=== PATIENT | male | born 1950 | race Caucasian/White ===

== ENCOUNTER 2017-07-25 05:22 | Day surgery (SDC) | payer OTHER ==
[~2017-07-25] VITALS: Ht 175.3 cm; Wt 79.8 kg
--- NOTE | ~2017-07-25 | O ---
[facility] [address] [place] [address] OPERATIVE REPORT Name: ANITHA ROMO Room #: DEP [facility]..#: [id number] Admission: 07/25/17 Attend Phys: Trev Slaughter MD Discharge: 07/25/17 Date of : 54 Report #: [id number] THIS REPORT FOR: //name// CC: Obdulia Slaughter DATE OF SERVICE: 07/25/[address] Trev Slaughter and Dr. Obdulia Gibbs and Dr. Kyle Dick. PREOPERATIVE DIAGNOSIS: Right inguinal hernia. POSTOPERATIVE DIAGNOSIS: Right inguinal hernia with a right cord lipoma. PROCEDURE: Right inguinal hernia repair with Prolene hernia system mesh and excision of a right cord lipoma. SURGEON: Trev Slaughter MD ANESTHESIA: Local IV sedation. DESCRIPTION OF PROCEDURE: The patient was brought to the operating room and placed on operative table in the supine position. Sequential compression devices were in place for DVT prophylaxis. There was no indication for preoperative antibiotics. The patient underwent IV sedation. The right inguinal area was prepped and draped in a sterile fashion. Skin and subcutaneous tissue were then infiltrated with 0.5% Marcaine and 1% Xylocaine in a 1:1 mixture. Right inguinal skin incision was then performed using #10 scalpel blade. Hemostasis obtained using electrocautery as well as clamps and 2-0 chromic ties. Dissection was carried down through the subcutaneous tissue, the external oblique fascia, which was then incised with a knife and opened with the Metzenbaum scissors. The cord was then dissected free from the canal and held into place with a Hailee drain. Cremasteric muscle fibers were then split in the direction of their fibers using clamp and electrocautery. A large cord lipoma was identified, dissected free, clamped, excised and tied with a 2-0 chromic tie. An indirect inguinal hernia sac was then also identified, dissected free and reduced back through the internal ring. The floor was inspected and there was also a direct inguinal hernia defect. This hernia sac was then incised just above the level of the floor and reduced back through the floor. An extended Prolene hernia system mesh was then inserted through the floor and the underlay patch was then deployed into the preperitoneal space covering the direct and indirect inguinal hernias. The floor was then tightened around the connector using running 2-0 Prolene 2 layer shouldice repair. The overlay patch was then deployed in the inguinal canal and it was secured at the pubic tubercle with the same running 2-0 Prolene suture. Mesh was then secured superiorly at the connector using simple interrupted 2-0 Vicryl sutures. The [address] [address] OPERATIVE REPORT Name: ANITHA ROMO Room #: DEP [facility] M.R.#: [id number] Admission: 07/25/17 Attend Phys: Trev Slaughter MD Discharge: 07/25/17 Date of : 54 Report #: [id number] mesh was split and wrapped around the cord, secured to the inguinal ligament with simple interrupted 2-0 Vicryl suture. The cord was then returned to the canal intact. The external oblique fascia was then closed using running 2-0 Vicryl suture. Adam's fascia was then reapproximated using 3 simple interrupted 2-0 chromic sutures and the skin then closed with a running 4-0 subcuticular Vicryl stitch. Wound was then dressed with Mastisol, 1/2-inch Steri-Strips cut in half, Telfa, 4 x 4 gauze, sponge and tape. The patient was then taken to the recovery room awake, alert and in good condition. Estimated blood loss was approximately 5 mL and the patient tolerated procedure well. All sponge, lap and instrument counts were correct x 2. <ELECTRONICALLY SIGNED> By: Trev Slaughter MD 07/25/17 1615 [id number] Trev Slaughter MD /nt
--- NOTE | ~2017-07-25 | S ---
[facility] [place] [address] SURGICAL PATH RPT PROCEDURE Name: HAI ROMO Room #: [place] [facility] M..#: [id number] Admission: 07/25/17 Date of : 54 Discharge: 07/25/17 Report #: [id number] Path Case #: [id number] PATHOLOGY REPORT COLLECTION DATE: 07/25/2017 RECEIVED DATE: 07/25/2017 SUBMITTING PHYS: Dr. Trev Slaughter OTHER PHYS: Dr. Obdulia Negron SPECIMEN(S) RECEIVED: A.Right cord lipoma * * * * * * * * * * * * FINAL DIAGNOSIS: "Right cord lipoma," excision: - Mature adipose tissue consistent with lipoma. (CLW:mgkenneth; 07/26/2017) PATHOLOGIST: Dianelys Lopez M.D. REPORT ELECTRONICALLY SIGNED BY: Dianelys Lopez M.D. DATE/TIME: 07/26/2017 22:20 * * * * * * * * * * * * GROSS PATHOLOGY: Received in formalin labeled "Hai Romo, right cord lipoma" and consists of a thinly encapsulated, glistening, and yellow orange fragment of adipose tissue measuring 8.0 x 4.0 x 2.5 cm. The specimen is inked black. The cut surfaces are glistening and yellow orange. [facility] Nurse Practitioner sections are submitted as A1. (VINAY; 07/25/2017) CLINICAL HISTORY: Hernia repair, inguinal unilateral INITIAL CPT CODE(S): A; 59974 Professional services performed by [facility] at [facility] [address] [place] [address] Technical services performed by [facility] at [address] [place] [id number]. [facility] [address] [place] [address] SURGICAL PATH RPT PROCEDURE Name: HAI ROMO Room #: DEP [facility] Kassandra#: [id number] Admission: 07/25/17 Date of : 54 Discharge: 07/25/17 Report #: [id number] Path Case #: [id number] [address] PHONE: [phone] DIRECTOR: Rodrigo Whitley M.D. * * * END OF REPORT * * *
[~2017-07-25 05:22] MED LIST: ACETAMINOPHEN-1 EAC1 PO; ASPIR 8181 M1 PO; FERREX 28 TABL1 EACH PO; GARLIC200 MG PO; GOLDEN SEAL RO535 MG PO; IBUPROFEN 200200 M1 PO; LIPOFLAVONOID1 EACH PO; VITAMIN D1000 UNI1 PO; VITAMIN E400 UNIT PO
[2017-07-25 08:21] VITALS: BP 117/83
[2017-07-25] MEDS ORDERED: PERCOCET PO (09:37)
[2017-07-25 11:36] VITALS: BP 117/83
== END 2017-07-25 12:10 | disposition home or self-care (01) ==
LOC: OR 05:22 → TBA 05:23 → OR 07:55
DX: K40.90 Unilateral inguinal hernia, without obstruction or gangrene, not specified as recurrent (principal); D17.6 Benign lipomatous neoplasm of spermatic cord; K21.9 Gastro-esophageal reflux disease without esophagitis; G43.909 Migraine, unspecified, not intractable, without status migrainosus; Z79.891 Long term (current) use of opiate analgesic; Z88.0 Allergy status to penicillin; Z79.82 Long term (current) use of aspirin; Z95.1 Presence of aortocoronary bypass graft; Z98.890 Other specified postprocedural states; Z95.5 Presence of coronary angioplasty implant and graft
CPT/HCPCS: 50010; 50101; 50386; 50417; 54111; 56524; 56525; 56526; 56528; 62110; 62900; 70005